=== PATIENT | female | born 2000 | race Two or more races ===

== ENCOUNTER 2022-09-12 06:59 | Day surgery (SDC) | payer OTHER | END 2022-09-12 18:35 | disposition home or self-care (01) | LOC: CIR.AMB 06:59 | PROVIDERS: ATTEND Obstetrics & Gynecology Gynecology | DX: N83.292 Other ovarian cyst, left side (principal); N83.8 Other noninflammatory disorders of ovary, fallopian tube and broad ligament; Z20.822 Contact with and (suspected) exposure to COVID-19 ==